=== PATIENT | male | born 1945 | race Caucasian/White ===

== ENCOUNTER 2023-10-24 10:32 | Outpatient (REF) | payer MEDICARE, OTHER, SELFPAY ==
--- NOTE | ~2023-10-24 | XR_ITS ---
EXAMINATION: XR LUMBOSACRAL SPINE WITH OBLIQUES CLINICAL INFORMATION: Spinal stenosis. COMPARISON: None available. TECHNIQUE: AP, both oblique, and lateral views of the lumbar spine. Lateral view of the lumbosacral junction. FINDINGS: Marked degenerative changes are present throughout the lumbosacral spine with disc space narrowing at most levels. L5-S1 is mildly preserved but there is grade 1 anterolisthesis of L5 upon S1. No fractures or bony destructive lesions are seen. XR/XR lumbar spine 4V min IMPRESSION: Marked degenerative changes throughout the lumbosacral spine with grade 1 anterolisthesis of L5 upon S1.
== END 2023-10-24 10:33 | disposition home or self-care (01) ==
LOC: HO.HOSX 10:32
PROVIDERS: PCP Internal Medicine; Visit Provider Neurological Surgery
DX: M48.062 Spinal stenosis, lumbar region with neurogenic claudication (principal)
CPT/HCPCS: 72110; 99202

== ENCOUNTER 2023-10-24 10:32 | Outpatient (AMB) | payer MEDICARE, OTHER, SELFPAY ==
--- NOTE | 2023-10-24 10:43 | A.SPINEOV_ITS ---
Intake Intake Visit Reasons: chronic low back pain Intake Note: Mr. Caba is here today c/o low back pain. Incident Response Manager Required: No Allergies No Known Allergies Allergy (Verified 10/24/23 10:43) Assessment & Plan Assessment & Plan (1) Lumbar stenosis with neurogenic claudication: Code(s): M48.062 - Spinal stenosis, lumbar region with neurogenic claudication Plan: Dear colleague Thank you for referring Amilcar Henriquez to the office today with a chief complaint of low back pain. HPI: This 78-year-old male is complaining of progressive back pain over years that is now to a point that it is interfering with his daily activities at the end of the day. The pain is mostly located on the right side of his back and can radiate to the outside of his thigh just below the knee. He also has intermittent numbness and tingling on the outside of his lower leg. He denies weakness. The symptoms get worse with walking and standing and improved with sitting down or laying down. On the left side he has a pain in his groin and in his ribcage. The following conservative treatment options were tried without success antiinflammatories, tylenol, physical therapy, cortisone shots PMH: Healthy Medications: Ibuprofen p.r.n. Allergies: NKDA Social history: . Nonsmoker Physical Exam: On inspection is a mild degenerative scoliosis. He stands in a flexed position. Decreased lordosis. Cade test produces pain on the left side. Straight leg raise is negative. No motor or sensory deficits. Radiological Studies: MRI done at [facility] on 09/23/2023 shows severe multilevel degenerative disc disease from L1-S1. More importantly, there is severe right L5 foraminal stenosis in conjunction with a grade 1 L5-S1 spondylolisthesis. The dynamic lumbar x-rays obtained today show only a mild degenerative scoliosis and Flexion-extension show no instability of the L5-S1 region. Impression/Plan: This patient is predominantly suffering from unilateral neurogenic claudication most likely related to the severe L5 foraminal stenosis. I offered him a right L5 foraminotomy to decompress the L5 nerve root instead of a multilevel lumbar fusion. I explained the rationale for my decision and the patient and his understood. I answered many of the patient's questions and he decided to go ahead. He is scheduled for December 26. He will get a preoperative clearance from his primary care physician. Thank you for allowing me to participate in your patients care. total time spent was 60 minutes in counseling ,coordination of plan, personal review of imaging, surgical decision making and subsequent plan Kevin Yang MD, PhD [facility] Trained Neurosurgeon Director, [facility] Orders: Orders XR lumbar spine 4V min Today M48.062 - Spinal stenosis, lumbar region with neurogenic claudication Coding Level of Care Code New Pt Level 5 (67435) Diagnoses Lumbar stenosis with neurogenic claudication M48.062
== END 2023-10-24 11:54 | disposition home or self-care (01) ==
PROVIDERS: PCP Internal Medicine; Visit Provider Neurological Surgery
DX: M48.062 Spinal stenosis, lumbar region with neurogenic claudication (principal)
CPT/HCPCS: 99205

== ENCOUNTER 2023-12-27 08:16 | Day surgery (SDC) | payer MEDICARE, OTHER, SELFPAY ==
[2023-12-19 12:14] VITALS: BP 166/72; PULSE 56; RESP 20; O2SAT 97; BMI 25.3
--- NOTE | 2023-12-19 12:30 | HO.ANESPROP2 ---
Documented by User: Mariluz Silva NP 12/19/23 12:41 HPI - Anesthesia Eval Consult details Narrative: 78yo M for Right L5 Foraminotomy No recent illness No CP/SOB with golf yesterday (used cart) BP up at PAT. Checks at home ~ 130/70's PMFSH Active Problems Active Problems: All Active Problems Lumbar stenosis with neurogenic claudication (Acute) Past Medical History Medical History Mineola' disease of right eye Arthritis Peptic ulcer Back pain Family History Family history of problems with anesthesia: No Surgical History Surgical History Hx of right cataract extraction H/O colonoscopy Hx of tonsillectomy History of total right knee replacement History of Problems with Anesthesia: No Social History Social History Are you a primary care process manager to a significant other at home: No Do you presently have visiting nurse or other home services: No Patient Tobacco Use Status: Former Tobacco user Quit Date: 1974 Tobacco use type: Cigarette Cigarettes Per Day: 3 Years Smoked: 12 Use of substances other than those prescribed or required for medical reasons: Yes Substance Use Type Other:: 3X/week Substance Use Frequency: Weekly Have you been hit, kicked, punched, or otherwise hurt by someone within the past year? If so, by whom?: No Are you DNR?: No Advance Directives: No Advance Directives Information Provided: Yes Advance Directives on File: No Recently lost weight without trying: No Eating poorly because of decreased appetite: No Nutrition Risks: No Nutritional Risk Poor oral hygiene: No Meds Allergies Allergy/AdvReac Type Severity Reaction Status Date / Time No Known Allergies Allergy Verified 12/27/23 08:53 Home Medications ?Medication ?Instructions ?Recorded ?Confirmed ?Last Taken ?Type amoxicillin 500 mg capsule 2,000 mg PO ONCE PRN prior to 12/13/23 12/19/23 Unknown History dental work cholecalciferol (vitamin D3) 50 50 mcg PO QAM 12/13/23 12/19/23 Unknown History mcg (2,000 unit) capsule (Vitamin D3) multivitamin 1 tab PO QAM 12/13/23 12/19/23 Unknown History omega-3 fatty acids-fish oil 684 1 cap PO QAM 12/13/23 12/19/23 12/20/23 History mg-1,200 mg capsule,delayed release ibuprofen 200 mg tablet 400 mg PO BEDTIME 12/19/23 12/19/23 Unknown History vitamin A-vitamin C-vit E-min 1 tab PO QAM 12/19/23 12/19/23 Unknown History tablet Exam Height,Weight and Vital Signs: Height 5 ft 5 in Weight 68.946 kg Last Vital Signs Pulse 56 12/19/23 12:14 Resp 20 12/19/23 12:14 BP 166/72 H 12/19/23 12:14 Pulse Ox 97 12/19/23 12:14 O2 Del Method Room Air 12/19/23 12:14 Pertinent Lab Results Pertinent Lab Results: CBC and BMP 03/2023 from outside facility WNL Narrative Narrative: EKG 12/14/2023 SR @ 56 Airway Mallampati Class: II TM Dist: >3cm Neck ROM: Full Loose/Missing/Broken Teeth: Yes (crowns throughout, #7 crowned) Heart: RRR Lungs: CTAB Assessment and Plan Assessment Anesthesia Assessment: Anesthesia Plan Discussed and PAT Visit Final Anesthetic Review Family History of Problems with Anesthesia: No History of Problems with Anesthesia: No Documented by User: Saniya Driscoll MD 12/27/23 08:55 PMFSH Past Medical History Medical History Mineola' disease of right eye Arthritis Peptic ulcer Back pain Surgical History Surgical History Hx of right cataract extraction H/O colonoscopy Hx of tonsillectomy History of total right knee replacement Social History Social History Are you a primary care process manager to a significant other at home: No Do you presently have visiting nurse or other home services: No Patient Tobacco Use Status: Former Tobacco user Quit Date: 1974 Tobacco use type: Cigarette Cigarettes Per Day: 3 Years Smoked: 12 Use of substances other than those prescribed or required for medical reasons: Yes Substance Use Type Other:: 3X/week Substance Use Frequency: Weekly Have you been hit, kicked, punched, or otherwise hurt by someone within the past year? If so, by whom?: No Are you DNR?: No Advance Directives: No Advance Directives Information Provided: Yes Advance Directives on File: No Recently lost weight without trying: No Eating poorly because of decreased appetite: No Nutrition Risks: No Nutritional Risk Poor oral hygiene: No Meds Allergies Allergy/AdvReac Type Severity Reaction Status Date / Time No Known Allergies Allergy Verified 12/27/23 08:53 Home Medications ?Medication ?Instructions ?Recorded ?Confirmed ?Last Taken ?Type amoxicillin 500 mg capsule 2,000 mg PO ONCE PRN prior to 12/13/23 12/19/23 Unknown History dental work cholecalciferol (vitamin D3) 50 50 mcg PO QAM 12/13/23 12/19/23 Unknown History mcg (2,000 unit) capsule (Vitamin D3) multivitamin 1 tab PO QAM 12/13/23 12/19/23 Unknown History omega-3 fatty acids-fish oil 684 1 cap PO QAM 12/13/23 12/19/23 12/20/23 History mg-1,200 mg capsule,delayed release ibuprofen 200 mg tablet 400 mg PO BEDTIME 12/19/23 12/19/23 Unknown History vitamin A-vitamin C-vit E-min 1 tab PO QAM 12/19/23 12/19/23 Unknown History tablet Assessment and Plan Assessment Anesthesia Assessment: Chart Reviewed Final Anesthetic Review NPO: Yes ASA Class: II (exsmoker , inhales marihuana) Final Preanesthetic Review: No Changes in Pt Med Stat, Meds/Allgs Chart Reviewed, Consent Obtained/Reviewed and Anes Risks/Benef Reviewed Patient Risk: Low Procedure Risk: Intermediate Anesthetic Plan Anesthetic Plan: GA Disposition: Standard PACU
[2023-12-27] VITALS (7 sets, daily range): BP systolic 140–152; BP diastolic 63–77; PULSE 55–67; RESP 12–17; TEMP 36.1–36.6; O2SAT 95–98; BMI 25.1
--- NOTE | ~2023-12-27 | FL_ITS ---
EXAMINATION: XR FLUOROSCOPY WITH IMAGES CLINICAL INFORMATION: L5 foraminotomy on the right. COMPARISON: None available. TECHNIQUE: Fluoroscopy Supervised By: Dr. Kevin Yang. Fluoroscopy Time: 0.03.5 seconds. Cumulative Dose: 1.4431 mGy. DAP: 0.5518 Gy-cm2. Images: 2. FINDINGS: Intraoperative fluoroscopy and spot films were performed during a procedure in the OR. A single image demonstrates a probe at the L5-S1 disc space. Please see Dr. Kevin Yang' report for complete details. FL/FL guidance in OR IMPRESSION: Intraoperative fluoroscopy and spot films were obtained. Please see Dr. Kevin Yang' report for complete details.
--- NOTE | 2023-12-27 07:02 | MHC.SHP ---
Pre-Procedural Eval Section A - 24 Hr Update-Section A only Date of Service: 12/27/23 The patient is an INPATIENT: No Changes since office visit: No Cold of Flu in the past 2 weeks, No New Medical Problems, No Changes in Medication and No Patient answered all questions The patient has been examined within 24 hours of the surgical procedure. The History & Physical has been completed within 30 days and I have reviewed it.: No Section B - Complete if H&P > 30 days Chief Complaint: Spinal stenosis, lumbar region with neurogenic Allergies: Allergies Allergy/AdvReac Type Severity Reaction Status Date / Time No Known Allergies Allergy Verified 10/24/23 10:43 Review of Systems Sugical H&P ROS: Negative: Constitution, Cardiovascular, Respiratory, Neurological, Psychiatric, Hem-Onc, Allergic/Immunologic, Gastrointestinal, Genitourinary, Musculoskeletal, Integumentary, Endocrine and Eyes/Ears/Nose/Throat Exam Surgical H&P Exam: Not Evaluated: HEENT, Not Evaluated: Heart, Not Evaluated: Lungs, Not Evaluated: Extremities, Not Evaluated: Abdomen, Not Evaluated: Skin and Not Evaluated: Neurological Plan Diagnosis/Plan: Unchanged right L5 foraminotomy Time Spent With Patient Time: Total time managing care of this patient today ____ minutes.
[2023-12-27] MEDS: methocarbamoL 750 MG TABLET PO (08:56)
[2023-12-27] MEDS: Gabapentin 300 MG CAPSULE PO (08:56)
[2023-12-27] MEDS: Lactated Ringers 1,000 ML 100 ML IVCONT (09:06)
--- NOTE | 2023-12-27 09:45 | P.DS_ITS ---
DS: Providers Provider Date of Service: 12/27/23 Date of discharge: 12/27/23 Primary care physician: Colin Esteban MD Admitting clinician: Kevin Yang DS: Diagnosis Discharge Diagnosis (1) Lumbar stenosis with neurogenic claudication: Status: Acute DS: Summary Time Attestation Discharge Coordination Time (in mins): 6 Quality: Safe Use of Opioids Does Pt have an Active Cancer Diagnosis on the Problem List?: No Quality: Stroke Does the patient have a stroke diagnosis?: No Physical Exam Vital Signs: Vital Signs: Last Vital Signs Temp 97.7 F 12/27/23 08:40 Pulse 55 12/27/23 08:40 Resp 15 12/27/23 08:40 BP 146/73 H 12/27/23 08:40 Pulse Ox 98 12/27/23 08:40 O2 Del Method Room Air 12/27/23 08:40 BMI result Body Mass Index 25.1 Discharge Plan Discharge Patient Disposition: Home, Self-Care Referrals: Colin Esteban MD [Primary Care Provider] - 1 Week Discharge Medications: New docusate sodium [Colace] 100 mg capsule 100 mg PO BID Qty: 20 0RF oxycodone 5 mg tablet 5 mg PO Q4H PRN (Reason: pain) Qty: 30 0RF Rx Instructions: Partial Fill upon patient request. Continued multivitamin Tablet 1 tab PO QAM amoxicillin 500 mg Capsule 2,000 mg PO ONCE PRN (Reason: prior to dental work) Rx Instructions: prior to dental work omega-3 fatty acids-fish oil 684-1,200 mg Capsule,Delayed Release(Dr/Ec) 1 cap PO QAM cholecalciferol (vitamin D3) [Vitamin D3] 50 mcg (2,000 unit) Capsule 50 mcg PO QAM ibuprofen 200 mg Tablet 400 mg PO BEDTIME vitamin A-vitamin C-vit E-min Tablet 1 tab PO QAM Discharge Orders: Discharge Order (Routine); Ordered 12/27/23 Ordered By: Derrell Mares Diet: Advance to usual diet Activity on Discharge: As tolerated Activity Restrictions/Additional Instructions: After your spinal surgery we ask you to observe the following restrictions/guidelines: Activity: It is normal to feel some discomfort as you increase your activity, but that will improve with time. We ask you avoid heavy lifting or acitivities that cause pain. As a general rule, 8lbs is a safe limit for lifting right after surgery. Walk as much as you feel comfortable but not to exhaustion. You will feel extra tired the first few days after surgery. Stay well hydrated. It is OK to walk up and down stairs You may return to driving when you are off narcotics (such as vicodin, oxycodone, dilaudid, etc), and you are back to normal functional capacity. If you have any concerns please check with office before driving. Return to work is specific to each patient and each surgery, so please speak with your doctor/PA at first follow up. Please bring paperwork such as FMLA at that time if you need it filled out. Medications: For optimum pain control, it is best to start with a combination of 500 mg of Tylenol every 4 hours with 600 mg of Motrin every 8 hours, and use narcotics as needed in between for breakthrough pain. We will give you a short supply of narcotics after surgery (usually one weeks worth). If you need more please call the office but do not use more than prescribed. You will need to give our office 48 hours notice if you need narcotics refilled and we do not fill narcotics on weekends or evenings. If you are on a narcotic, it is a good idea to take a stool softener such as colace or senna to avoid constipation If you take blood thinner such as aspirin, Plavix, Coumadin, Effient, Eliquis etc for conditions such as Afib, DVT, Pulmonary embolus, coronary disease, stents etc please speak with your surgeon about specific details as to when you can resume these medications. You can resume NSAIDs on post op day 1 (eg: Motrin, Naproxen, etc). Follow up: Please call the office, , after surgery to arrange a 3 week follow up for wound check. Wound Care: You may remove your dressing on the first day after surgery. ?You may ?leave open to air. Please do not remove the steri strips underneath. they will fall off on their own in one week. IT IS NORMAL FOR THE WOUND TO OOZE OR BE BLOODY FOR A FEW DAYS AFTER SURGERY. ?IF THIS HAPPENS JUST PLACE NEW DRESSING OVER IT TO AVOID STAINING CLOTHES. You may shower on post op day # 1 We ask that you do not let the water soak the wound. If it does get wet, just towel dry lightly. Please do not scrub your incision or place any type of chemical/ointment on the wound. No tub baths, pools or jacuzzis for one month. If you have any leaking or redness from your wound, or fevers, please call office Print Language: Korean
--- NOTE | 2023-12-27 10:32 | P.OP_ITS ---
Operative Note Operative Note Date of Service: 12/27/23 Narrative: Preoperative Diagnosis: Spinal stenosis/lateral recess stenosis/neural foraminal stenosis Operation: Right L5 Laminotomy, Partial facetectomy and foraminotomy with use of microscope Consent Informed Consent was obtained for this operation. I have explained the nature, purpose and benefits of the operation. I have discussed the risks and benefit of the operation including possible complications or adverse events with patient/family. Alternative(s) were discussed with the patient with their relative benefits and risks as well as the consequences of not accepting the operation were included in obtaining consent. Surgeon: SHANNON LANDIN MD, PHD Procedure Assisted By: janet Kumar Description of Procedure Patient is suffering from a right L5 radiculopathy due to right L5 neural foraminal stenosis The patient was offered a decompression of the nervous structures. The procedure complications were explained. The patient was consented. The patient was brought to the operating room and endotracheally intubated. The patient was turned in prone position on the Zackary frame. Prep and drape was done followed by timeout. Physician warehouse administrative assistant provided access. A mid lumbar incision was made followed by release of the paravertebral muscle on the right side to expose the L5 lamina and facet joint. An intraoperative x-ray was obtained to confirm the correct level. The microscope was brought in. I took over the procedure. The high-speed drill was used to do a L5 laminotomy. #2 Kerrison was used to further remove the lamina towards the L5 foramen. With a nerve hook the medial wall of the L5 pedicle was palpated as well as the beginning of the L5 foramen. The facet joint was partially drilled down after which with a #2 Kerrison a foraminotomy was done. Finally a foraminotomy Kerrison was used to complete the foraminotomy. A long nerve hook could be easily passed lateral and dorsally from the nerve root, a sign of relief of the neuroforaminal stenosis and decompression of the nerve root . The microscope was removed. Hemostasis was done. Incision was closed in 2 layers. Steri-Strips were used to approximate incision. An OpSite with Tegaderm was used to cover the incision. All sponge needle counts were correct. Patient was extubated and transported in stable is to recovery room. Anesthesia: General Estimated Blood Loss (ml): Minimal Duration of Surgery: 30 Minutes Postoperative Plan: Discharge to home
--- NOTE | 2023-12-27 10:50 | ECG_ITS ---
Test Reason : AFLUTTER Blood Pressure : / mmHG Vent. Rate : 058 BPM Atrial Rate : 058 BPM P-R Int : 180 ms QRS Dur : 110 ms QT Int : 460 ms P-R-T Axes : 045 015 -15 degrees QTc Int : [address] & T wave abnormality, consider inferior ischemia Abnormal ECG No previous ECGs available Referred By: Saniya Driscoll Electronically Signed By:RUDOLPH MADDOX MD
== END 2023-12-27 12:03 | disposition home or self-care (01) ==
PROVIDERS: PCP Internal Medicine; Visit Provider Neurological Surgery
PROC: (CPT 63047; principal; 2023-12-27 10:40)
DX: M48.062 Spinal stenosis, lumbar region with neurogenic claudication (principal); M41.56 Other secondary scoliosis, lumbar region; R20.0 Anesthesia of skin; R20.2 Paresthesia of skin; Z79.1 Long term (current) use of non-steroidal anti-inflammatories (NSAID)
CPT/HCPCS: 63047; 93005; J0131; J0690; J1100; J1885; J2405; J2704; J3010

== ENCOUNTER → 2023-12-27 08:16 | Outpatient (BNV) | payer MEDICARE, OTHER, SELFPAY | PROVIDERS: PCP Internal Medicine; Visit Provider Neurological Surgery | DX: M48.062 Spinal stenosis, lumbar region with neurogenic claudication (principal) | CPT/HCPCS: 63047; 99499 ==

== ENCOUNTER → 2023-12-27 10:50 | Outpatient (BNV) | payer MEDICARE, OTHER, SELFPAY | PROVIDERS: PCP Internal Medicine; Visit Provider Internal Medicine Cardiovascular Disease | DX: R94.31 Abnormal electrocardiogram [ECG] [EKG] (principal) | CPT/HCPCS: 93010 ==

== ENCOUNTER 2024-01-17 11:27 | Outpatient (AMB) | payer MEDICARE, OTHER, SELFPAY ==
--- NOTE | 2024-01-17 11:39 | HO.SPINEOV ---
Intake Visit Reasons: 1st post op Intake Note: Mr. Caba is here for his 1st post-op Drapery Supervisor Required: No Allergies No Known Allergies Allergy (Verified 12/27/23 08:53) Assessment & Plan Assessment & Plan (1) Status post lumbar spine surgery for decompression of spinal cord: Code(s): Z98.890 - Other specified postprocedural states Category: Surgical Plan Procedure: Right L5 foraminotomy Amilcar comes in today for his 1st postoperative visit. He reports that he feels the surgery was successful; he has had a large decrease in symptoms. He has been able to go swimming in the ocean, cut down trees on his property, and even go gofling. He does still report some tenderness/aches on his right lateral lower leg, but states this is the only real symptom that he still currently has. We did discuss the postoperative healing course and he was strongly encouraged not do any significant heavy lifting at least until his incision site is fully healed over. Other than that he is essentially back to normal activity. No new neurological deficits. The patient is able to ambulate well and rises from a seated position without difficulty. Posterior incision site is clean, dry, and well healing. Steri-Strips have fallen off on their own. I would like to follow up with Amilcar in 6 weeks for a subsequent follow-up visit to ensure that his symptoms continue to resolve & his posterior incision site has healed over completely. Hollis Yang MD,PhD [facility] Coding Level of Care Code Global (50588) Diagnoses Status post lumbar spine surgery for decompression of spinal cord Z98.890
== END 2024-01-17 12:15 | disposition home or self-care (01) ==
PROVIDERS: PCP Internal Medicine; Visit Provider Physician Assistant
DX: Z98.890 Other specified postprocedural states (principal)
CPT/HCPCS: 99024

== ENCOUNTER → 2024-01-17 11:27 | Outpatient (BNVA) | payer MEDICARE, OTHER, SELFPAY | PROVIDERS: PCP Internal Medicine; Visit Provider Physician Assistant | DX: Z48.89 Encounter for other specified surgical aftercare (principal); Z98.890 Other specified postprocedural states | CPT/HCPCS: 99212 ==

== ENCOUNTER 2024-03-17 13:17 | Outpatient (AMB) | payer MEDICARE, OTHER, SELFPAY ==
--- NOTE | 2024-03-17 13:18 | HO.SPINEOV ---
Intake Visit Reasons: 2nd post op Intake Note: Mr. Henriquez is here today for a 2nd post op visit. Broommaker Required: No Allergies No Known Allergies Allergy (Verified 03/17/24 13:22) Assessment & Plan Assessment & Plan (1) Status post lumbar spine surgery for decompression of spinal cord: Code(s): Z98.890 - Other specified postprocedural states Category: Surgical Plan Operation: Right L5 Laminotomy, Partial facetectomy and foraminotomy Amilcar is a pleasant 78-year-old male who comes in today for a subsequent follow-up visit. He reports that overall he continues to be very satisfied with the surgery and he is happy that he had the procedure done. He reports no significant concerns since he last saw us. He continues to state that he has been back to ?regular activity.? He did asked several questions regarding the postoperative healing course which I answered to the best of my ability. His is currently employed as a physical therapist and has been helping with stretching/exercises. His posterior incision site appears clean, dry, and well healed. No new neurological deficits reported. He ambulates without an antalgic gait and rises from a seated position without difficulty. There is no need for continued routine follow-up with Amilcar, he may be discharged as a patient and follow-up on an as-needed basis. Hollis Yang MD,PhD [facility] Coding Level of Care Code Global (01098) Diagnoses Status post lumbar spine surgery for decompression of spinal cord Z98.890
== END 2024-03-17 14:07 | disposition home or self-care (01) ==
PROVIDERS: PCP Internal Medicine; Visit Provider Physician Assistant
DX: Z98.890 Other specified postprocedural states (principal)
CPT/HCPCS: 99024

== ENCOUNTER → 2024-03-17 13:17 | Outpatient (BNVA) | payer MEDICARE, OTHER, SELFPAY | PROVIDERS: PCP Internal Medicine; Visit Provider Physician Assistant | DX: Z47.89 Encounter for other orthopedic aftercare (principal); Z98.890 Other specified postprocedural states | CPT/HCPCS: 99212 ==